=== PATIENT | female | born 1975 | race Caucasian/White ===

== ENCOUNTER 2016-07-22 22:18 | Emergency (ER) | payer MEDICARE, MEDICAID ==
[2016-07-22 22:51] LABS: Urine Bilirubin Negative (NEGATIVE); Urine Blood Negative /ul (NEGATIVE); Urine Ketone 5 mg/dL (NEGATIVE); Urine Nitrite Negative (NEGATIVE); Urine Protein Negative (NEGATIVE); Urine Urobilinogen Normal (NORMAL)
[2016-07-22 22:52] LABS: Hematocrit 39.9 % (37.0-47.0); Hemoglobin 12.3 gm/dL (12.5-16.0); Mean Cell Volume 87.1 fl (78-100); Mean Corpuscular Hemoglobin 26.9 pg (27-31); Mean Corpuscular Hgb Conc 30.8 g/dl (32-36); Mean Platelet Volume 8.8 fl (6.0-9.5); Neutrophil # 8.4 K/mm3 (1.3-6.0); Platelet Count 333 K/mm3 (150-450); Red Blood Count 4.58 M/mm3 (4.2-5.4); Red Cell Distribution Width 15.2 % (11.5-14.0); White Blood Count 12.4 K/mm3 (4.0-10.5)
[2016-07-22 23:05] LABS: Albumin * 3.6 gm/dl (3.4-5.0); Anion Gap 16.7 mmol/L (6.8-13.8); BUN/Creatinine Ratio 21.1 (9.0-21.6); Bilirubin, Total 0.1 mg/dL (0.0-1.1); Carbon Dioxide 24.1 mmol/L (24-32.6); Potassium 3.8 mmol/L (3.4-4.6); Total Protein 8.1 gm/dL (6.2-8.2)
[2016-07-22 23:06] LABS: Urine Appearance Clear; Urine Bacteria 1+; Urine Color Yellow; Urine RBC None Seen /hpf (0-5); Urine WBC None Seen /hpf (0-5)
[2016-07-22] MEDS ORDERED: KETOROLAC TROMETHAMINE 30 MG/ML VIAL IV ONE (23:13)
[2016-07-22] MEDS ORDERED: KETOROLAC TROMETHAMINE 30 MG/ML VIAL ONE (23:34)
--- OUTSIDE RECORDS SUMMARY | 2016-07-22 23:44 | XMS REPORT | Continuity of Care Document ---
:1975 Author Organization [facility] ([facility]) Address [address] [place] [address] Phone [phone] Care Team Providers Name Role Phone Liya Barkley Primary Care Provider [phone] Source Comments This disclosure is being made pursuant to the Care Everywhere program, applicable federal and state laws, and may not contain all informaitonavailable regarding this patient.[facility] ([facility]) Active Allergies and Adverse Reactions Allergen Noted Date Severity Reactions Comments Sulfa (Sulfonamide Antibiotics) 04/07/2011 Urticaria (Hives) Current Medications Prescription Sig. Disp. Refills Start Date End Date Status medroxyPROGESTERone Take 10 mg by mouth Active (PROVERA) 10 mg tablet daily. Days 1-10 of every month. loratadine (CLARITIN) 10 Take 10 mg by mouth Active mg tablet daily as needed. insulin glargine (LANTUS) inject 14 Units Active 100 unit/mL cartridge subcutaneously 2 times daily. metformin (GLUCOPHAGE) Take 1,000 mg by Active 1,000 mg tablet mouth 2 times daily with meals. acetaZOLAMIDE 125 mg Take 250 mg by mouth Active tablet 2 times daily. escitalopram (LEXAPRO) 20 Take 30 mg by mouth Active mg tablet daily. lisinopril 5 mg tablet Take 5 mg by mouth 2 Active times daily. esomeprazole (NEXIUM) 40 Take 40 mg by mouth Active mg EC capsule daily. multivitamin tablet Take 1 Tab by mouth Active daily. Mcdowell-3 Fatty Take 1 Cap by mouth Active Acids-Vitamin E (FISH daily. OIL) 1,000 mg Cap levothyroxine 75 mcg Take 75 mcg by mouth Active tablet every morning before breakfast. ibuprofen 200 mg tablet Take 600 mg by mouth Active every 6 hours as needed. naproxen 250 mg tablet Take 500 mg by mouth Active as needed. Ibuprofen (ADVIL Take 400 mg by mouth Active MIGRAINE) 200 mg Cap every 6 hours. 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 Pulse 105 04/07/2011 7:41 AM CLINICAL PROGRAM CONSULTANT Temperature - - Respiratory Rate - - Height 1.753 m (5' 9") 04/07/2011 7:41 AM CLINICAL PROGRAM CONSULTANT Weight 116.7 kg (257 lb 4.4 oz) 04/07/2011 7:41 AM CLINICAL PROGRAM CONSULTANT Body Mass Index 37.98 04/07/2011 7:41 AM CLINICAL PROGRAM CONSULTANT Oxygen Saturation - - Plan of Care Health Maintenance Due Date Last Done Comments Hepatitis B Vaccine (1 of 3 - Primary Series) 1975 Tdap Vaccine 1984 Lipid Disorder Screening 08/21/1991 MMR Vaccine 08/21/1991 Td Vaccine 08/21/1991 Pneumococcal Vaccine (1 of 1 - PPSV23) 1992 Cervical Cancer Screening 08/21/2003 Mammogram 2013 Influenza Vaccine: Seasonal (#1) 11/01/2015 Results from Last 3 Months Not on file
[2016-07-23] MEDS ORDERED: DIATRIZOATE MEGLU/DIATRIZO SOD 30 ML BTL PO ONE (00:19)
--- NOTE | 2016-07-23 00:21 | ERNOTE ---
Abdominal HPI - General Chief Complaint: Abdominal Pain Time Seen by Provider: 07/22/16 23:02 Source: patient Exam Limitations: no limitations - Immun/Allergies/Home Medications Immunizatons: IMMUNIZATION HX Immunizations Up to Date Yes History of Influenza Vaccine Yes Hx Pneumococcal Vaccination Yes Allergies/Adverse Reactions: Allergies Sulfa (Sulfonamide Antibiotics) Allergy (Intermediate, Verified 03/02/16 07:26) Hives Home Medications: HOME MEDICATIONS Albuterol Sulfate [Proair Hfa] 1 - 2 puff IH Q4H PRN 03/02/16 [Last Taken Unknown] Alprazolam [Xanax Xr] 0.25 mg PO BID PRN 03/02/16 [Last Taken Unknown] Aspirin 325 mg PO DAILY 03/02/16 [Last Taken Unknown] Cholecalciferol (Vitamin D3) [Vitamin D3] 4,000 unit PO DAILY 03/02/16 [Last Taken Unknown] Cyanocobalamin (Vitamin B-12) [Vitamin B12] 2,500 mcg PO DAILY 03/02/16 [Last Taken Unknown] Esomeprazole Magnesium [Nexium] 40 mg PO DAILY 03/02/16 [Last Taken Unknown] Fexofenadine HCl [Dimple Allergy] 180 mg PO DAILY 03/02/16 [Last Taken Unknown] Ibuprofen [Motrin] 800 mg PO TID PRN #60 tab 03/02/16 [Last Taken Unknown] Insulin Aspart [Novolog] 28 units SC TIDWM 03/02/16 [Last Taken Unknown] Insulin Glargine,Hum.rec.anlog [Lantus] 50 units SC ACHS 03/02/16 [Last Taken Unknown] Levothyroxine Sodium [Synthroid] 75 mcg PO DAILY 03/02/16 [Last Taken Unknown] Lisinopril [Zestril] 20 mg PO DAILY 03/02/16 [Last Taken Unknown] Loperamide HCl [Imodium A-D] 2 mg PO PRN 03/02/16 [Last Taken Unknown] Medroxyprogesterone Acetate [Provera] 10 mg PO DAILY 03/02/16 [Last Taken Unknown] Multivitamin [One Daily Essential] 1 each PO DAILY 03/02/16 [Last Taken Unknown] Ondansetron [Zofran Odt] 4 mg PO Q4H PRN #10 tab 03/02/16 [Last Taken Unknown] Simvastatin [Zocor] 80 mg PO DAILY 03/02/16 [Last Taken Unknown] Tamsulosin HCl [Flomax] 0.4 mg PO DAILY #7 capsule 03/02/16 [Last Taken Unknown] Venlafaxine HCl [Effexor] 375 mg PO 03/02/16 [Last Taken Unknown] acetaZOLAMIDE [Acetazolamide] 250 mg PO BID 03/02/16 [Last Taken Unknown] metFORMIN HCL [Glucophage] 1,250 mg PO BIDWM 03/02/16 [Last Taken Unknown] Ciprofloxacin HCl [Cipro] 500 mg PO BID #20 tab 07/23/16 [Last Taken Unknown] oxyCODONE HCL/ACETAMINOPHEN [Percocet 5 MG/325 MG] 1 tab PO Q4H PRN #20 tab [Last Taken Unknown] - History of Present Illness Narrative: Patient woke up yesterday morning with right sided abdominal pain, the pain has been increasing in intensity and mainly gets worse with movement. Yesterday she was still able to mow the lawn, today she is increasingly unable to do things, mild pain at rest, worse with movement and breathing. Pizza at 19:00 did not worsen the pain, no nausea and vomiting, no prior pain like it. She had a kidney stone last year but the pain was in the flank and felt different Date (Duration): 07/21/16 Time (Timing): 07:00 Review of Systems - Review of Systems Constitutional: Absent: recent illness, fever ENT: Absent: ear pain, nose congestion, sore throat Respiratory: Absent: shortness of breath Cardiology: Absent: chest pain Gastrointestinal/Abdominal: Present: diarrhea - few loose BM(not unsusal for her ). Absent: nausea, vomiting Genitourinary: Present: no symptoms reported Musculoskeletal: Absent: back pain Neurological: Absent: headache, weakness, numbness - Patient's Past Medical History Patient History - Medical: Diabetes Type 2, Hypothyroidism, Other Patient History - Cardiac/Respiratory: Hypertension, Hyperlipidemia Patient History - Cancer: No Hx of Cancer Patient History - Surgical Procedures: T & A Patient History - Other: None LMP (Calendar): 02/23/16 - Social History Living Situations: home Abuse History: No History of abuse Psych History: Hx of Anxiety, Hx of Depression Smoking Status: Former smoker Have you smoked in the past 12 months: No Alcohol Use: none Drug Use: none - Immunizations Immunizations Up to Date: Yes Hx Pneumococcal Vaccination: Yes History of Influenza Vaccine: Yes Physical Exam - Physical Exam General Appearance: Present: wd/wn, alert, no apparent distress, obese - morbidly Ears, Nose, Throat: Present: normal pharynx Respiratory: Present: no respiratory distress, normal breath sounds, no accessory muscle use, lungs clear Cardiovascular/Chest: Present: regular rate, rhythm, no murmur Gastrointestinal/Abdominal: Present: normal bowel sounds, soft, tenderness - right upper abdomen and epigastric Back Exam: Present: no CVA tenderness Neurological Exam: Present: alert, oriented, normal mood/affect Skin Exam: Present: normal color, warm/dry ED Progress - Results and Orders Patient's Lab Results:: I have reviewed the patient's lab results. - Vital Signs Patient's Vital Signs:: I have reviewed the patient's vital signs. Vital Signs: Vital Signs 07/22/16 22:21 Temperature 36.7 C Pulse Rate 108 H Respiratory 18 Rate Blood Pressure 196/104 O2 Sat by Pulse 97 Oximetry - X-Ray X-Ray #1 X-Ray: abdomen - no acute changes Interpretation: Interp. by me - CT/Ultrasound CT/Ultrasound Narrative: CT abdomen/pelvis: possible enteritis, no other acute findings, see report - Progress/Reassessment Chief Complaint: Abdominal Pain Progress Note-Subjective: 07/23/16 00:20 discussed results of labs and Xray, pain better at 4/10 with no nausea/vomiting and no increase in pain with food (recent pizza) gallbladder problems less likely, will get CT 07/23/16 03:[address] findings with patient and family, pain coming back Departure - Departure Clinical Impression: Enteritis Disposition: Home self-care Condition: Good Instructions: Abdominal Pain, Adult, [id number] Referrals: Avery Barnard MD [Primary Care Provider] - Prescriptions: Ciprofloxacin HCl [Cipro] 500 mg PO BID #20 tab oxyCODONE HCL/ACETAMINOPHEN [Percocet 5 MG/325 MG] 1 tab PO Q4H PRN #20 tab PRN Reason: Pain
[2016-07-23] MEDS ORDERED: DIATRIZOATE MEGLU/DIATRIZO SOD 30 ML BTL ONE (00:23)
[2016-07-23] MEDS ORDERED: oxyCODONE HCL/ACETAMINOPHEN 1 TAB TABLET PO ONE (03:01)
[2016-07-23] MEDS ORDERED: CIPROFLOXACIN HCL 250 MG TABLET PO ONE (03:02)
[2016-07-23] MEDS ORDERED: CIPROFLOXACIN HCL 250 MG TABLET ONE (03:05)
[2016-07-23] MEDS ORDERED: oxyCODONE HCL/ACETAMINOPHEN 1 TAB TABLET ONE (03:05)
[2016-07-23 03:15] VITALS: BP 159/90
== END 2016-07-23 03:14 | disposition home or self-care (01) ==
LOC: ER 22:18
DX: K52.9 Noninfective gastroenteritis and colitis, unspecified (principal); Z87.891 Personal history of nicotine dependence